=== PATIENT | female | born 1980 | race Caucasian/White ===

== ENCOUNTER 2018-05-21 21:34 | Emergency (ER) | payer OTHER ==
--- NOTE | 2018-05-21 22:23 | EDPHY ---
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 She was tearing a work today and sustained a very superficial laceration to her left thumb. She is presenting for evaluation. Denies past medical history. She is not have any interest in post exposure prophylaxis. She knows the patient well and has low suspicion for possibility of infectious disease exposure. She is presenting for baseline lab testing per [employer] protocol. ROS: 10 systems were reviewed and were negative except those elements noted in the HPI. PMH: Denies Social History: No smoking, no alcohol, no recreational drug use Family History: non-contributory Physical Exam: Gen: Awake, Alert, No Distress HEENT: Nose: no rhinorrhea Eyes: PERRLA, EOMI Mouth: Moist mucosa Neck: Supple, no JVD Chest: No distress Heart: Normal perfusion Abd: Normal inspection Ext: no edema, left thumb has a very superficial non suturable laceration to the distal left thumb. No active bleeding. There is no erythema. There is no discharge. Skin: no rash Neuro: CN II-XII intact, Sensation grossly intact, Strength 5/5 in bilateral upper and lower extremities - Personal History LMP (Females 10-55): IUD In Place Current Tetanus Diphtheria and Acellular Pertussis (TDAP): Yes - Medical/Surgical History Hx Asthma: No Hx Chronic Respiratory Disease: No Hx Diabetes: No Hx Cardiac Disease: No Hx Renal Disease: No Hx Cirrhosis: No Hx Alcoholism: No Hx HIV/AIDS: No Hx Splenectomy or Spleen Trauma: No Other PMH: Denies - Social History Smoking Status: Never smoked Constitutional: Initial Vital Signs Temperature (C) 36.6 C 05/21/18 21:36 Heart Rate 62 05/21/18 21:36 Respiratory Rate 18 05/21/18 21:36 Blood Pressure 91/63 L 05/21/18 21:36 O2 Sat (%) 98 05/21/18 21:36 O2 Delivery Mode Room Air Allergies/Adverse Reactions: No Known Allergies Allergy (Unverified 05/21/18 21:39) Home Medications: Medication Instructions Recorded NK [No Known Home Meds] 05/21/18 Medical Decision Making ED Course/Re-evaluation: 37-year-old with a thumb laceration here for post exposure evaluation. I have counseled the patient extensively regarding possible infectious disease contact. She has a medical practitioner. She is declining any post exposure prophylaxis at this time. Baseline bloods have been sent. She will follow up with workman's Comp. Lacerations nonsuturable and has been dressed with a Band- Aid. - Data Points Laboratory Results: 05/21/18 05/21/18 22:01 22:01 Hep Bs Antigen Pending Hep Bs Antibody Pending Hep Bs Antibody, Quant Pending Hepatitis C Antibody Pending HIV 1&2 Antibody Pending Departure - Departure Disposition: Home, Routine, Self-Care Clinical Impression: Thumb laceration, Exposure to blood Condition: Good Instructions: Laceration Without Closure (ED) Additional Instructions: Follow up with workman's Comp in 1-2 days for test results and further evaluation. Referrals: ALEXANDRO OLIVARES [Other] - As per Instructions
[2018-05-21 22:37] VITALS: BP 100/58
[2018-05-21 23:58] LABS: HEPATITIS B SURFACE ANTIGEN NEGATIVE (NEGATIVE); HEPATITIS C ANTIBODY TOTAL NEGATIVE (NEGATIVE); HIV TYPE 1 AND 2 NEGATIVE (NEGATIVE)
== END 2018-05-21 22:35 | disposition home or self-care (01) ==
DX: S61.012A Laceration without foreign body of left thumb without damage to nail, initial encounter (principal); Z77.21 Contact with and (suspected) exposure to potentially hazardous body fluids; X58.XXXA Exposure to other specified factors, initial encounter; Y92.9 Unspecified place or not applicable; Y93.9 Activity, unspecified; Y99.0 Civilian activity done for income or pay
CPT/HCPCS: G0472